=== PATIENT | male | born 1970 | race Caucasian/White ===

== ENCOUNTER 2019-03-20 19:11 | Emergency (ER) | payer OTHER ==
[2019-03-20] MEDS ORDERED: DIAZEPAM 5 MG TABLET ONE (19:48)
[2019-03-20] MEDS ORDERED: LIDOCAINE 5% TOPICAL PATCH TP ONE (19:48)
[2019-03-20] MEDS ORDERED: ACETAMINOPHEN EXTRA STRENGTH 500 MG TABLET ONE (19:48)
== END 2019-03-20 21:05 | disposition home or self-care (01) ==
LOC: EDH 19:11
DX: M54.5 Low back pain (principal); M62.830 Muscle spasm of back; Z88.5 Allergy status to narcotic agent
CPT/HCPCS: 72100